=== PATIENT | female | born 2000 | race Two or more races ===

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

== ENCOUNTER 2020-09-22 18:20 | Emergency (ER) | payer MEDICAID ==
[~2020-09-22] VITALS: Ht 165.1 cm; Wt 63.5 kg
[2020-09-22 18:48] VITALS: BP 109/64
[2020-09-22] MEDS ORDERED: TETANUS-DIPTH-ACEL PERTUSSIS 0.5ML SYR Tdap IM ONE (23:00)
== END 2020-09-23 01:01 | disposition home or self-care (01) ==
LOC: ER 18:20
DX: S01.91XA Laceration without foreign body of unspecified part of head, initial encounter (principal); V49.9XXA Car occupant (driver) (passenger) injured in unspecified traffic accident, initial encounter; Y93.89 Activity, other specified; Y92.89 Other specified places as the place of occurrence of the external cause; Y99.8 Other external cause status
CPT/HCPCS: 70450; 72125; 90471; 90715

== ENCOUNTER 2023-03-04 00:56 | Emergency (ER) | payer MEDICAID ==
[~2023-03-04] VITALS: Ht 167.6 cm; Wt 63.6 kg
[2023-03-04 01:10] VITALS: BP 106/65
== END 2023-03-04 03:50 | disposition home or self-care (01) ==
LOC: ER 00:56
DX: R10.2 Pelvic and perineal pain (principal)
CPT/HCPCS: 72170; 74176